=== PATIENT | male | born 1970 | race American Indian/Alaskan Native ===

== ENCOUNTER 2017-10-08 07:53 | Emergency (ER) | payer BC ==
[2017-10-08 08:03] VITALS: BP 146/96
[2017-10-08 09:00] LABS: Bilirubin,Urine NEG (Negative); Blood,Urine LG (Negative); Ketones,Urine NEG (Negative); Leukocyte Esterase,Urine NEG (Negative); Nitrite,Urine NEG (Negative); Urobilinogen,Urine < 2.0 mg/dL (<2.0)
[2017-10-08 09:17] LABS: Basophils % (Auto) 0.4 % (0.0-1.8); Eosinophils % (Auto) 1.7 % (0.0-4.3); Hematocrit 40.8 % (35.5-45.6); Hemoglobin 13.8 gm/dl (11.8-15.2); Mean Corpuscular HGB Conc 34 % (32-34); Mean Corpuscular Hemoglobin 30 pg (28-32); Mean Corpuscular Volume 88 fl (84-94); Platelet Count 127 K/mm3 (140-440); Red Blood Count 4.62 M/mm3 (3.65-5.03); Red Cell Distribution Width 13.5 % (13.2-15.2); White Blood Count 7.7 K/mm3 (4.5-11.0)
[2017-10-08 09:21] LABS: Albumin 3.8 g/dL (3.9-5); Albumin/Globulin Ratio 1.2 %; Bilirubin,Total 0.8 mg/dL (0.1-1.2); Calcium 8.9 mg/dL (8.4-10.2); Chloride 99.5 mmol/L (98-107); Potassium 3.7 mmol/L (3.6-5.0); Total Protein 7.1 g/dL (6.3-8.2)
--- NOTE | 2017-10-08 11:41 | Emergency Department Report ---
ED Abdominal Pain HPI - General Chief Complaint: Urogenital-Male Stated Complaint: BLLOD IN URINE Time Seen by Provider: 10/08/17 10:24 Source: patient Mode of arrival: Ambulatory Limitations: No Limitations - History of Present Illness Initial Comments: 47-year-old male with a past medical history of hypertension sometimes and not currently on meds presents to the hospital with complaints of abdominal pain and intermittent nausea and vomiting 3 days. Patient complains of intermittent lower abdominal cramping pain rated as 7/10 intensity. No aggravating or alleviating factors reported. Patient was seen in urgent care center on October 06 and was prescribed Zofran which helped the vomiting symptoms. Yesterday patient noticed blood in his urine without reports of dysuria, fever, flank pain, penile pain, or testicular pain. Denies previous history of kidney stones or abdominal surgeries. No pain reported at this time. - Related Data Previous Rx's Medication Instructions Recorded Last Taken Type HYDROcodone/APAP 5-325 [[place] 1 each PO Q6HR PRN #20 tablet 10/08/17 Unknown Rx 5/325] Sulfamethoxazole/Trimethoprim 1 each PO BID #14 tablet 10/08/17 Unknown Rx [Bactrim DS TAB] Tamsulosin [Flomax] 0.4 mg PO QDAY #7 cap 10/08/17 Unknown Rx Allergies Allergy/AdvReac Type Severity Reaction Status Date / Time No Known Allergies Allergy Unverified 10/08/17 07:59 ED Review of Systems ROS: Stated complaint: BLLOD IN URINE Other details as noted in HPI Comment: All other systems reviewed and negative Other: Constitutional: No fevers chills Eyes: No eye pain visual changes ENT: No ear pain or throat pain Neck: Denies pain Respiratory: Denies cough wheezing shortness of breath Cardiovascular: Denies chest pain, palpitations, syncope GI: As per HPI : As per HPI Musculoskeletal: Denies back pain Skin: Denies rash, lesions, erythema Neurologic: Denies headache, numbness, weakness Psychiatric: Denies suicidal ideation, hallucinations ED Past Medical Hx - Past Medical History Previous Medical History?: Yes Hx Hypertension: Yes (noncompliant) - Surgical History Past Surgical History?: No - Social History Smoking Status: Never Smoker Substance Use Type: Alcohol, Prescribed - Medications Home Medications: Home Medications Medication Instructions Recorded Confirmed Last Taken Type HYDROcodone/APAP 5-325 [[place] 1 each PO Q6HR PRN #20 tablet 10/08/17 Unknown Rx 5/325] Sulfamethoxazole/Trimethoprim 1 each PO BID #14 tablet 10/08/17 Unknown Rx [Bactrim DS TAB] Tamsulosin [Flomax] 0.4 mg PO QDAY #7 cap 10/08/17 Unknown Rx ED Physical Exam - General Limitations: No Limitations - Other Other exam information: General: No limitations, patient is alert in no acute distress Head exam: Atraumatic, normocephalic Eyes exam: Normal appearance ENT: Moist mucous membrane, normal oropharynx Neck exam: Normal inspection, full range of motion, no meningismus nontender Respiratory exam: Clear to auscultation bilateral, no wheezes, rales, crackles Cardiovascular: Normal rate and rhythm, normal heart sounds Abdomen: Soft, nondistended, and nontender, with normal bowel sounds, no rebound, or guarding Extremity: Full range of motion normal inspection no deformity Back: Normal Inspection, full range of motion, no tenderness Neurologic: Alert, oriented x3, cranial nerves intact, no motor or sensory deficit Psychiatric: normal affect, normal mood Skin: Warm, dry, intact ED Course Vital Signs 10/08/17 07:59 Temperature 98.2 F Pulse Rate 56 L Respiratory 18 Rate Blood Pressure 146/96 O2 Sat by Pulse 100 Oximetry - Reevaluation(s) Reevaluation #1: 10/08/17 13:23 Patient declined pain medicine initially and continues to be pain free without nausea or vomiting. Positive urine output in the ed 10/08/17 14:33 prior to d/c pt states pain returning slightly, meds ordered prior to d/c - Consultations Consultation #1: 10/08/17 14:14 Dr Paulino consulted. Follow up tomorrow or this week strain urine, abx bactrim , and symptomatic 10/08/17 14:[address] Paulino prior to d/c ED Medical Decision Making - Lab Data Result diagrams: 10/08/17 08:47 10/08/17 08:47 Lab Results 10/08/17 10/08/17 10/08/17 Range/Units 08:16 08:47 08:47 WBC 7.7 (4.5-11.0) K/mm3 RBC 4.62 (3.65-5.03) M/mm3 Hgb 13.8 (11.8-15.2) gm/dl Hct 40.8 (35.5-45.6) % MCV 88 (84-94) fl MCH 30 (28-32) pg MCHC 34 (32-34) % RDW 13.5 (13.2-15.2) % Plt Count 127 L (140-440) K/mm3 Lymph % (Auto) 23.8 (13.4-35.0) % [place] % (Auto) 12.9 H (0.0-7.3) % Eos % (Auto) 1.7 (0.0-4.3) % Baso % (Auto) 0.4 (0.0-1.8) % Lymph # 1.8 (1.2-5.4) K/mm3 [place] # 1.0 H (0.0-0.8) K/mm3 Eos # 0.1 (0.0-0.4) K/mm3 Baso # 0.0 (0.0-0.1) K/mm3 Seg Neutrophils % 61.2 (40.0-70.0) % Seg Neutrophils # 4.7 (1.8-7.7) K/mm3 Sodium 137 (137-145) mmol/L Potassium 3.7 (3.6-5.0) mmol/L Chloride 99.5 (98-107) mmol/L Carbon Dioxide 28 (22-30) mmol/L Anion Gap 13 mmol/L BUN 19 (9-20) mg/dL Creatinine 1.6 H (0.8-1.5) mg/dL Estimated GFR 47 ml/min BUN/Creatinine Ratio 12 % Glucose 98 (75-100) mg/dL Calcium 8.9 (8.4-10.2) mg/dL Total Bilirubin 0.80 (0.1-1.2) mg/dL AST 15 (5-40) units/L ALT 18 (7-56) units/L Alkaline Phosphatase 90 (35-129) units/L Total Protein 7.1 (6.3-8.2) g/dL Albumin 3.8 L (3.9-5) g/dL Albumin/Globulin Ratio 1.2 % Lipase 25 (13-60) units/L Urine Color Red (Yellow) Urine Turbidity Clear (Clear) Urine pH 6.0 (5.0-7.0) Ur Specific [place] 1.005 (1.003-1.030) Urine Protein 30 mg/dl (Negative) mg/dL Urine Glucose (UA) Neg (Negative) mg/dL Urine Ketones Neg (Negative) mg/dL Urine Blood Lg (Negative) Urine Nitrite Neg (Negative) Urine Bilirubin Neg (Negative) Urine Urobilinogen < 2.0 (<2.0) mg/dL Ur Leukocyte Esterase Neg (Negative) Urine WBC (Auto) 2.0 (0.0-6.0) /HPF Urine RBC (Auto) 15.0 (0.0-6.0) /HPF U Epithel Cells (Auto) < 1.0 (0-13.0) /HPF - Radiology Data Radiology results: report reviewed read By radiologist CT abdomen and pelvis noncontrast: Obstructing left ureteral stone with moderate left hydronephrosis. Stone size 5.8 x 5.1 x 6.4 mm located in the mid to left distal ureter at the level of the pelvic brim with moderate of straining left hydronephrosis - Medical Decision Making Plan to discharge patient home and follow-up with urology for renal colic. Urology consultation and follow-up, pain medication and antibiotics as advised. Patient remained in no acute distress in the ED without pain, nausea, or vomiting. Mild thrombocytpenia noted. f/u will be rec - Differential Diagnosis renal colic, gastritis, cystitis, nephritic syndrome Critical Care Time: No Critical care attestation.: If time is entered above; I have spent that time in minutes in the direct care of this critically ill patient, excluding procedure time. ED Disposition Clinical Impression: Renal colic on left side, Mild renal insufficiency, Thrombocytopenia Disposition: DC-01 TO HOME OR SELFCARE Is pt being admited?: No Does the pt Need Aspirin: No Condition: Stable Instructions: Renal Colic (ED), Thrombocytopenia (ED), Impaired Kidney Function (ED) Additional Instructions: It is very important that you follow up with urology for further management of the left-sided kidney stone as discussed. Take the medication as prescribed. You have slightly impaired kidney function which is likely related to the kidney stone and will need follow-up. You also have slight decrease in your platelet count (thrombocytopenia) and will need to have this reevaluated as outpatient as well. We have been provided referral for a primary care doctor in a urologist Prescriptions: HYDROcodone/APAP 5-325 [[place] 5/325] 1 each PO Q6HR PRN #20 tablet PRN Reason: Pain Sulfamethoxazole/Trimethoprim [Bactrim DS TAB] 1 each PO BID #14 tablet Tamsulosin [Flomax] 0.4 mg PO QDAY #7 cap Referrals: BRETT PAULINO MD [Staff Physician] - 3-5 Days ALINE BRIONES MD [Staff Physician] - 3-5 Days Forms: Work/School Release Form(ED) Time of Disposition: 15:45
--- NOTE | 2017-10-08 11:41 | Cat Scan Report ---
CT ABDOMEN PELVIS WITHOUT CONTRAST: HISTORY: Abdominal cramps, hematuria. COMPARISON: none. TECHNIQUE: Helical CT in 1.25mm intervals without IV contrast. Sagittal and coronal reconstructions. FINDINGS: Lung bases: normal. Liver: normal. Biliary system: normal. Pancreas: normal. Spleen: normal. Kidneys/ureters/bladder: A 5.8 x 5.1 x 6.4 mm calculus is identified in the mid to distal left ureter at the level of the pelvic brim. There is moderate upstream left hydronephrosis. No other nephrolithiasis is appreciated. No evidence for focal renal lesion. The bladder is unremarkable. Adrenal glands: normal. Aorta: normal. Intestines: normal. Appendix: normal. Pelvic viscera: normal. Musculoskeletal: normal. IMPRESSION: Obstructing left ureteral stone as outlined above. Moderate left hydronephrosis.
[2017-10-08] MEDS ORDERED: ZOFRAN ODT PO ONE (14:25)
[2017-10-08] MEDS ORDERED: NORCO 5/325 PO ONE (14:25)
[2017-10-08] MEDS ORDERED: TORADOL IM ONE (14:25)
--- NOTE | 2017-10-08 15:57 | XRay Report ---
FINAL REPORT EXAM: XR ABDOMEN 1V AP HISTORY: left distal ureteral stone TECHNIQUE: PRIORS: None. FINDINGS: Moderate amount of stool and gas throughout the colon. No dilated small bowel loops are identified. No signs for free air Noted is a 0.5 centimeter calcification overlying the lower sacrum on the left could be ureteral versus phlebolith. Few small calcifications seen more inferiorly in the pelvis are most consistent with phleboliths. IMPRESSION: Suspect 0.5 centimeter distal ureteral calculus
== END 2017-10-08 16:03 | disposition home or self-care (01) ==
LOC: ED 07:53
DX: N23 Unspecified renal colic (principal); N28.9 Disorder of kidney and ureter, unspecified; D69.6 Thrombocytopenia, unspecified; I10 Essential (primary) hypertension
CPT/HCPCS: 36415; 74000; 74176; 80053; 81001; 83690; 85025; 96372; 99284; J1885; Q0162

== ENCOUNTER 2017-10-19 15:55 | Outpatient (CLI) | payer BC ==
--- NOTE | 2017-10-19 21:45 | XRay Report ---
FINAL REPORT PROCEDURE: XR ABDOMEN 1V AP TECHNIQUE: Two view abdomen HISTORY: CALCULUS OF URETER COMPARISON: Abdomen 10/08/2017 FINDINGS: Moderate stool volume. Prominent chronic calcification lateral hip area measures 9 x 3 millimeters. Mild degenerative changes of the hips. Multiple phleboliths.. Phleboliths in the pelvis. 4 millimeters calcification in the left medial pelvis just lateral to the sacrum indeterminate but could reflect a distal left ureteral calculus. IMPRESSION: Possible distal left ureteral calculus
== END 2017-10-19 15:56 | disposition home or self-care (01) ==
LOC: XRAY 15:55
PROVIDERS: ATTEND Urology
DX: N20.1 Calculus of ureter (principal); I87.8 Other specified disorders of veins; M16.0 Bilateral primary osteoarthritis of hip; M25.852 Other specified joint disorders, left hip; I10 Essential (primary) hypertension
CPT/HCPCS: 74000